=== PATIENT | male | born 1985 | race Caucasian/White ===

== ENCOUNTER 2021-11-16 21:47 | Emergency (ER) | payer MEDICAID ==
[~2021-11-16] VITALS: Ht 165.1 cm; Wt 90.7 kg
--- NOTE | 2021-11-16 22:17 | NUR ---
PT TOÑA VIA GURNEY TO BED 06
[2021-11-16] MEDS ORDERED: MORPHINE SULFATE 4 MG/ML SYR IVP ONE (22:35)
[2021-11-16 23:37] VITALS: BP 133/72
[2021-11-17] MEDS ORDERED: PROPOFOL 200 MG/20 ML VIAL IV ONE (00:30)
--- NOTE | 2021-11-17 01:40 | NUR ---
WE FINISH THE REDUTION SUCCESSFUL VITALS SIGNS IN NORMAL LIMITS NOT COMPLAINING OF PAIN PATIENT GOT CONSCIUS SEDATION WITH PROPOFOL AND TOLARATED THE PROSEDURE VERY WELL RESPRIRATORY BALLISTICS EXPERT THE DOCTORS AND ME AT THE BED SIDE NOW PATIENT IS FULL AWAKED AND STABLE vs bp 110/62 hr 102 r 20 spo2 96 % at 2 l //DiCaprio RN
[2021-11-17] MEDS ORDERED: IBUP-2213 PO (03:53)
[2021-11-17] MEDS ORDERED: ACET-8386 PO (03:53)
[2021-11-17 03:58] VITALS: BP 136/72
--- NOTE | 2021-11-17 04:02 | NUR ---
PATIENT DC HOME FEELING WELL STABLE AFTER REDUCTION VITALS SIGNS IN NORMAL LIMITS ALL DC INSTRUCTION GAVE AND EXPLAING WE RECOMEND TO FOLLOW UP WITH PCP AND ORTHOPEDIAN //DiCaprio RN
== END 2021-11-17 04:02 | disposition home or self-care (01) ==
LOC: MED 21:47
DX: S42.302A Unspecified fracture of shaft of humerus, left arm, initial encounter for closed fracture (principal); W19.XXXA Unspecified fall, initial encounter; Y93.89 Activity, other specified; Y92.89 Other specified places as the place of occurrence of the external cause; Y99.8 Other external cause status
CPT/HCPCS: 24500; 73020; 73060; 73070; 96374; 99152; 99285; J2270; J2704; Q0092